=== PATIENT | female | born 1990 | race Caucasian/White ===

== ENCOUNTER 2020-12-26 15:51 | Inpatient (IN) | payer OTHER, SELFPAY ==
[2020-12-26] VITALS (9 sets, daily range): BP systolic 119–143; BP diastolic 72–88; PULSE 79–95; RESP 18; TEMP 37.2–37.3; BMI 39.1
--- NOTE | 2020-12-26 16:22 | LDADM ---
This patient, Elham Sims, was admitted to Labor/Delivery/Recovery 109 on 12/26/20 at 15:51. Plans for labor, pain management and were discussed with patient. Patient/family oriented to hospital policies and general routines including ID bracelet, bed and alarms, visiting hours, pain management, procedures, bathroom and other care routines, personal items, smoking policy, room service/diet and guest tray routines, security routines, and visiting hours. Patient/Family are encouraged to report perceived risks to care and to ask questions if they do not understand what they are told or what they should do. See OBIX for further documentation.
[2020-12-26] MEDS: DINOPROSTONE 10 MG VAG INSERT VAGINAL (16:31)
[2020-12-26] MEDS: AMPICILLIN 2 GM/NS 100 ML 2 GM/100 ML BAG IVPB (16:32)
[2020-12-26] MEDS: LACTATED RINGERS 1,000 ML 125 ML IV CONT (16:32)
[2020-12-26 16:58] LABS: Basophils Percent Auto 0.3 % (0.2-1.2); Eosinophils Percent Auto 0.5 % (0-4.4); Hematocrit 35.2 % (37.0-47.0); Hemoglobin 11.6 g/dL (12.0-15.0); Immature Granulocyte Absolute 0.02 K/mm3 (0.00-0.031); Immature Granulocyte Percent A 0.3 % (0-0.5); Lymphocytes Absolute Auto 1.24 K/mm3 (0.9-3.2); Lymphocytes Percent Auto 16.3 % (18.3-44.2); Mean Corpuscular Hemoglobin 28.4 pg (26-34); Mean Corpuscular Volume 86.1 fl (80-100); Mean Platelet Volume 11.4 fl (7.4-10.4); Monocytes Absolute Auto 0.6 K/mm3 (0.1-0.6); Monocytes Percent Auto 7.2 % (2.6-8.5); Neutrophils Absolute Auto 5.8 K/mm3 (1.3-6.7); Neutrophils Percent Auto 75.4 % (45.5-73.1); Platelet Count Result 173 k/mm3 (150-375); Red Blood Count 4.09 M/mm3 (4.2-5.4); Red Cell Distribution Width 13.2 % (11.5-14.5); White Blood Count 7.6 K/mm3 (4.5-10.0)
--- NOTE | 2020-12-26 17:08 | P.PNAN_ITS ---
Anes - Eval Pre Procedure Procedure: Labor epidural Date/Time: 12/26/20 17:08 Surgeon: Thom Preop Diagnosis: pain during labor Pre Op Diagnosis: Induction of Labor Patient Data Age: 30 Gender: F Height: 1.57 m Weight: 97 kg Last Vital Signs Pulse 90 12/26/20 17:01 BP 141/88 H 12/26/20 17:01 Allergies Allergy/AdvReac Type Severity Reaction Status Date / Time No Known Allergies Allergy Verified 12/03/20 14:41 Home Medications Medication Instructions Recorded Confirmed Type prenat.vits,pa,aiz-frvl-sfrtp 1 tablet PO DAILY 12/03/20 12/03/20 History [ #2] Laboratory Tests 12/26/20 12/26/20 16:26 16:26 WBC 7.6 K/mm3 K/mm3 (4.5-10.0) RBC 4.09 M/mm3 L M/mm3 (4.2-5.4) Hgb 11.6 g/dL L g/dL (12.0-15.0) Hct 35.2 % L % (37.0-47.0) MCV 86.1 fl fl (80-100) MCH 28.4 pg pg (26-34) MCHC 33.0 g/dl g/dl (32-36) RDW 13.2 % % (11.5-14.5) Plt Count 173 k/mm3 k/mm3 (150-375) MPV 11.4 fl H fl (7.4-10.4) Immature Gran % (Auto) 0.3 % % (0-0.5) Neut % (Auto) 75.4 % H % (45.5-73.1) Lymph % (Auto) 16.3 % L % (18.3-44.2) [place] % (Auto) 7.2 % % (2.6-8.5) Eos % (Auto) 0.5 % % (0-4.4) Baso % (Auto) 0.3 % % (0.2-1.2) Lymph # (Auto) 1.24 K/mm3 K/mm3 (0.9-3.2) [place] # (Auto) 0.6 K/mm3 K/mm3 (0.1-0.6) Eos # (Auto) 0.0 K/mm3 K/mm3 (0-0.3) Baso # (Auto) 0.0 K/mm3 K/mm3 (0.0-0.1) Abs Immat Gran (auto) 0.02 K/mm3 K/mm3 (0.00-0.031) Absolute Neuts (auto) 5.8 K/mm3 K/mm3 (1.3-6.7) Absolute Nucleated RBC 0.0 K/mm3 K/mm3 (0.0-0.012) Nucleated RBC % 0.0 % % (0.0-0.2) RPR Pending Patient hx anesthesia problems: none Family hx anesthesia problems: none [facility] Past Medical History Medical History (Updated 12/26/20 @ 17:09 by Maryuri Amin CRNA) Intrauterine Family History Family History (Updated 12/03/20 @ 14:43 by Nerissa Bolton RN) Mother Palpitations Grandparent Heart disease Father Diabetes mellitus Social History Social History Smoking status: Never smoker Substance use: never Spiritual care concerns: No Exam Day of Procedure 12/26/20 17:08
[2020-12-26] MEDS: AMPICILLIN 1 GM/NS 50 ML 1 GM/50 ML BAG IVPB (20:22)
[2020-12-27] VITALS (247 sets, daily range): BP systolic 88–166; BP diastolic 53–121; PULSE 70–128; RESP 17–22; TEMP 36.4–37.6; O2SAT 94–100
[2020-12-27] MEDS: AMPICILLIN 1 GM/NS 50 ML 1 GM/50 ML BAG IVPB ×5 (00:28→17:49)
[2020-12-27] MEDS: OXYTOCIN 30 UNITS/NS 500 ML 30 UNITS/500 ML BAG 6 UNITS IV CONT (05:07)
--- NOTE | 2020-12-27 07:58 | WPDOBADMIT ---
Obstetrics - Admit Note Admission Note: 30 y/o G1 @ 39w3d here for induction of labor. VSS Irregular contractions FHR category 1 Cervix 2/80/-2 Arom moderate amount of clear odorless fluid Anticipate record reviewed. No pertinent additions to the history and/or any subsequent changes in the physical findings that are not consistent with the expected course of the were found. Additions to the history and/or subsequent changes in the physical findings follow. None.
[2020-12-27] MEDS: LACTATED RINGERS 1,000 ML 999 ML IV CONT (08:52)
[2020-12-27 11:00] LABS: Rapid Plasma Reagin Non-Reactive (NonReactive)
[2020-12-27] MEDS: LACTATED RINGERS 1,000 ML 125 ML IV CONT (14:02)
--- NOTE | 2020-12-27 18:50 | PM.IMHP ---
H&P: HPI History of Present Illness Date/Time: 12/27/20 18:50 Chief Complaint: Induction of labor Narrative: Elham Sims is a 30 year old female @ 39w 3d here for induction of labor. Review of Systems Review of Systems: All systems reviewed & are unremarkable except as noted in HPI and below PMFSH Past Medical History Medical History Intrauterine Family History Family History Mother Palpitations Grandparent Heart disease Father Diabetes mellitus Social History Social History Smoking status: Never smoker Substance use: never Spiritual care concerns: No Meds Home Medications and Allergies Home Medications Medication Instructions Recorded Confirmed Type prenat.vits,pa,jck-aqgk-bjtxf 1 tablet PO DAILY 12/03/20 12/03/20 History [ #2] Allergies Allergy/AdvReac Type Severity Reaction Status Date / Time No Known Allergies Allergy Verified 12/03/20 14:41 Vital Signs Vital Signs - 24 hr 12/26/20 20:28 12/26/20 20:31 12/27/20 00:27 Temperature 99.1 F 97.6 F Pulse Rate 82 83 Respiratory Rate 18 18 Blood Pressure 143/81 H 143/87 H Pulse Oximetry 12/27/20 00:32 12/27/20 01:01 12/27/20 01:31 Temperature Pulse Rate 79 76 75 Respiratory Rate Blood Pressure 143/83 H 142/90 H 135/90 Pulse Oximetry 12/27/20 02:01 12/27/20 02:31 12/27/20 02:56 Temperature Pulse Rate 70 74 72 Respiratory Rate Blood Pressure 135/91 H 148/100 H 132/88 Pulse Oximetry 12/27/20 03:00 12/27/20 03:31 12/27/20 04:01 Temperature Pulse Rate 70 75 78 Respiratory Rate Blood Pressure 138/88 131/83 142/85 H Pulse Oximetry 12/27/20 04:33 12/27/20 04:36 12/27/20 05:06 Temperature 98.9 F Pulse Rate 76 82 Respiratory Rate 18 Blood Pressure 131/79 128/80 Pulse Oximetry 12/27/20 05:15 12/27/20 05:31 12/27/20 05:46 Temperature Pulse Rate 86 79 79 Respiratory Rate Blood Pressure 143/86 H 138/87 132/82 Pulse Oximetry 12/27/20 06:01 12/27/20 06:16 12/27/20 06:30 Temperature Pulse Rate 74 79 76 Respiratory Rate Blood Pressure 123/74 132/84 139/83 Pulse Oximetry 12/27/20 07:01 12/27/20 07:15 12/27/20 07:30 Temperature Pulse Rate 78 79 80 Respiratory Rate Blood Pressure 138/89 140/92 H 140/89 Pulse Oximetry 12/27/20 07:49 12/27/20 08:00 12/27/20 08:16 Temperature 99.1 F Pulse Rate 82 89 Respiratory Rate Blood Pressure 153/88 H 146/95 H Pulse Oximetry 12/27/20 08:31 12/27/20 08:39 12/27/20 08:41 Temperature Pulse Rate 88 98 103 H Respiratory Rate Blood Pressure 140/89 150/100 H 155/83 H Pulse Oximetry 99 12/27/20 08:43 12/27/20 08:44 12/27/20 08:46 Temperature Pulse Rate 84 81 Respiratory Rate Blood Pressure 166/76 H 138/75 Pulse Oximetry 97 12/27/20 08:48 12/27/20 08:49 12/27/20 08:51 Temperature Pulse Rate 90 90 Respiratory Rate Blood Pressure 152/83 H 142/85 H Pulse Oximetry 99 12/27/20 08:53 12/27/20 08:54 12/27/20 08:56 Temperature Pulse Rate 87 90 Respiratory Rate Blood Pressure 141/82 H 144/82 H Pulse Oximetry 98 12/27/20 08:58 12/27/20 08:59 12/27/20 09:01 Temperature Pulse Rate 89 88 Respiratory Rate Blood Pressure 139/82 129/79 Pulse Oximetry 99 12/27/20 09:03 12/27/20 09:04 12/27/20 09:06 Temperature Pulse Rate 87 86 Respiratory Rate Blood Pressure 139/80 139/82 Pulse Oximetry 97 12/27/20 09:08 12/27/20 09:09 12/27/20 09:11 Temperature Pulse Rate 85 83 Respiratory Rate Blood Pressure 145/81 H 141/81 H Pulse Oximetry 95 12/27/20 09:13 12/27/20 09:14 12/27/20 09:16 Temperature Pulse Rate 86 83 Respiratory Rate Blood Pressure 140/85 135/80 Pulse Oximetry 97 0
--- NOTE | 2020-12-27 18:55 | PM.OBPNLAB ---
Pain Control Date/time seen: 12/27/20 18:55 VSS and afebrile Contractions regular FHR category 1 Complete and pushing x 2.5 hours Suboptimal position with caput Arrest of descent Spoke with Dr Tomas and c/s has been called.
--- NOTE | 2020-12-27 19:03 | WPDHPUPDATE1 ---
History and Physical Update Update Date/Time: 12/27/20 19:03 History and Physical has been reviewed, including an updated exam of the patient. There are NO changes in the patient's condition. Risks, benefits, and alternatives have been discussed and questions answered. Patient agrees to proceed with procedure.
[2020-12-27] MEDS: KETOROLAC 30 MG/ML VIAL (*BKC) IV PUSH (19:45)
--- NOTE | 2020-12-27 19:56 | P.OP_ITS ---
Procedure Note - Detailed Date of procedure: 12/27/20 Pre-op diagnosis: Induction of Labor Failure to Descend Post-op diagnosis: same (Malposition of the head.) Procedure performed: low-transverse delivery Description of procedure: The patient was taken the operating room. She was prepped and draped in the dorsal supine position with leftward tilt after induction of spinal anesthetic. When anesthesia was found to be adequate a low- transverse skin incision was made and carried down to the level the fascia with the knife. The fascial incision was made at the midline with a scalpel. The fascial incision was extended laterally with Cortés scissors. The fascia was tented upward superior and inferior with Smita clamps. The rectus muscles were dissected off bluntly. The rectus muscles at the midline. The preperitoneal fat was dissected bluntly at the superior aspect of the separate the rectus muscles. The peritoneal cavity was entered bluntly in the same area. The peritoneal incision was extended superior and inferior with good visualization of bladder. Bladder blade was inserted. A low-transverse incision was made on the uterus with the scalpel. It was carried down the level of the amniotic cavity with a knife. The amniotic cavity bluntly. The uterine incision was made laterally with blunt traction. The infant was delivered. The cord was clamped and cut. The infant was handed off to waiting pediatric staff. Cord bloods were obtained. The placenta was removed manually. The uterus was exteriorized. Uterus cleared of all clots and debris. The uterine incision was extended behind the bladder by delivery of the very low head. The apical portion of the extended incision was identified and included in the closure. Uterus closed in 0 Vicryl in a running locked fashion. An imbricating layer of 0 Vicryl was also placed on the to bolster the closure. The uterus was returned to the abdomen. The gutters were cleared of all clots and debris. The fascia was closed 0 Vicryl in a running fashion. Subcutaneous tissue was irrigated and bleeding areas were cauterized. The skin was closed with subcuticular absorbable avinash. The incision was covered with derma alcantar. The patient tolerated the procedure well. She was taken recovery room stable condition. Sponge, lap, needle counts were correct x2. Anesthesia: spinal Surgeon: Jaja Tomas MD Drains: No Packing: No Pathology: none sent Complications: No immediate complications Condition: stable Disposition: floor Findings: Normal maternal anatomy. Average size infant with normal Apgars. malposition of the head - LOP
[2020-12-27] MEDS: ceFAZolin 2 GM/D5W 50 ML 2 GM/50 ML BAG IVPB (20:05)
[2020-12-27] MEDS: OXYTOCIN 30 UNITS/NS 500 ML 30 UNITS/500 ML BAG 125 UNITS IV CONT (21:30)
--- NOTE | 2020-12-27 22:22 | OBPPTRN ---
Patient transferred to post room # 292 via stretcher. Support person and present. Oriented to unit, room, information board, rooming in, admission packet and security measures. Patient verbalizes understanding.
[2020-12-28 00:15] VITALS: BP 118/76; PULSE 81; RESP 18; TEMP 37; O2SAT 97
[2020-12-28] MEDS: DEXTROSE 5%/0.45% SOD CHL 1,000 ML 125 ML IV CONT (02:29)
[2020-12-28 05:00] VITALS: BP 116/67; PULSE 78; RESP 18; TEMP 36.8; O2SAT 97
[2020-12-28 05:37] LABS: Basophils Percent Auto 0.3 % (0.2-1.2); Eosinophils Percent Auto 0.1 % (0-4.4); Hematocrit 30.2 % (37.0-47.0); Hemoglobin 9.8 g/dL (12.0-15.0); Immature Granulocyte Absolute 0.05 K/mm3 (0.00-0.031); Immature Granulocyte Percent A 0.5 % (0-0.5); Lymphocytes Absolute Auto 1.16 K/mm3 (0.9-3.2); Lymphocytes Percent Auto 10.8 % (18.3-44.2); Mean Corpuscular HGB Conc 32.5 g/dl (32-36); Mean Corpuscular Hemoglobin 28.4 pg (26-34); Mean Corpuscular Volume 87.5 fl (80-100); Mean Platelet Volume 11.3 fl (7.4-10.4); Monocytes Absolute Auto 0.8 K/mm3 (0.1-0.6); Neutrophils Absolute Auto 8.7 K/mm3 (1.3-6.7); Neutrophils Percent Auto 81.3 % (45.5-73.1); Platelet Count Result 151 k/mm3 (150-375); Red Blood Count 3.45 M/mm3 (4.2-5.4); Red Cell Distribution Width 13.4 % (11.5-14.5); White Blood Count 10.7 K/mm3 (4.5-10.0)
[2020-12-28 06:56] LABS: Basophils Percent Auto 0.2 % (0.2-1.2); Eosinophils Percent Auto 0.2 % (0-4.4); Hematocrit 29.3 % (37.0-47.0); Hemoglobin 9.5 g/dL (12.0-15.0); Immature Granulocyte Absolute 0.03 K/mm3 (0.00-0.031); Immature Granulocyte Percent A 0.3 % (0-0.5); Lymphocytes Percent Auto 10.8 % (18.3-44.2); Mean Corpuscular HGB Conc 32.4 g/dl (32-36); Mean Corpuscular Hemoglobin 28.3 pg (26-34); Mean Corpuscular Volume 87.2 fl (80-100); Monocytes Absolute Auto 0.8 K/mm3 (0.1-0.6); Monocytes Percent Auto 7.6 % (2.6-8.5); Neutrophils Absolute Auto 8.3 K/mm3 (1.3-6.7); Neutrophils Percent Auto 80.9 % (45.5-73.1); Platelet Count Result 140 k/mm3 (150-375); Red Blood Count 3.36 M/mm3 (4.2-5.4); Red Cell Distribution Width 13.5 % (11.5-14.5); White Blood Count 10.2 K/mm3 (4.5-10.0)
[2020-12-28 08:00] VITALS: BP 126/74; PULSE 92; RESP 18; TEMP 37.3; O2SAT 98
--- NOTE | 2020-12-28 08:00 | PC.NURSE ---
Nipple shield provided to mother due to ineffective feeding and flat nipples. Instructions given on application and cleaning of shield. Discussed nipple shield precautions and possible complications. Patient able to return demonstration on proper application of shield. Discussed the need to initiate pumping if continues to nurse with the shield. Patient verbalizes understanding.
[2020-12-28] MEDS: KETOROLAC 30 MG/ML VIAL (*BKC) IV PUSH (09:11)
[2020-12-28] MEDS: HYDROcodone/acetaminophen (*CRX) 5-325 MG TABLET 1 TAB PO ×3 (09:11→17:41)
[2020-12-28] MEDS: SIMETHICONE 80 MG TAB.CHEW PO ×2 (09:12→17:42)
[2020-12-28] MEDS: DOCUSATE SODIUM 100 MG CAPSULE PO ×2 (09:12→17:43)
[2020-12-28] MEDS: POLYSACCHARIDE IRON COMPLEX 150 MG CAPSULE PO ×2 (09:12→17:43)
[2020-12-28] MEDS: MULTIVIT/MIN/PREN/FOL AC/IRON TABLET 1 TAB PO (09:12)
--- NOTE | 2020-12-28 09:29 | WPDANLDPN2 ---
Anes-Prog Note L&D Date/Time: 12/28/20 09:29 Comfortable throughout: labor and section Neuraxial method: epidural Epidural/Spinal procedure site: clean & non-tender Neuro status: Neuro function grossly intact. Cardiovascular status: normal Respiratory status: normal Airway patency: baseline Mental status: baseline Post-Op hydration status: normal Vital Signs: Last Vital Signs Temp 36.8 C 12/28/20 05:00 Pulse 78 12/28/20 05:00 Resp 18 12/28/20 05:00 BP 116/67 12/28/20 05:00 Pulse Ox 97 12/28/20 05:00 Pain score (VAS): 3 I/O: Intake & Output 12/27/20 12/28/20 12/28/20 23:59 07:59 15:59 Intake Total 400 620 Output Total 175 300 Balance 225 320 Post-procedural complaints: none Patient feedback: Patient satisfied with anesthetic care.
--- NOTE | 2020-12-28 09:30 | WPDANLDNPN2 ---
Anes-Prog Note L&D-Neuraxial Date/Time: 12/28/20 09:30 Neuraxial medications: epidural PF morphine Opiod-related complaints: none Patient feedback: Patient satisfied with post-operative pain management.
[2020-12-28] MEDS: diphenhydrAMINE HCl INJ 50 MG/ML VIAL 25 MG IV PUSH (09:36)
--- NOTE | 2020-12-28 09:41 | P.PNOB_ITS ---
OB - PN: Subj Subjective Date/time seen: 12/28/20 09:41 Patient comments: no complaints, pain well controlled, tolerating diet and flatus present OB - PN: Obj Data Labs CBC & Chem 7: 12/28/20 06:44 Labs: Laboratory Results - last 24 hr 12/26/20 12/28/20 12/28/20 16:26 05:07 06:44 WBC 10.7 H 10.2 H RBC 3.45 L 3.36 L Hgb 9.8 L 9.5 L Hct 30.2 L 29.3 L MCV 87.5 87.2 MCH 28.4 28.3 MCHC 32.5 32.4 RDW 13.4 13.5 Plt Count 151 140 L MPV 11.3 H 11.0 H Immature Gran % (Auto) 0.5 0.3 Neut % (Auto) 81.3 H 80.9 H Lymph % (Auto) 10.8 L 10.8 L [place] % (Auto) 7.0 7.6 Eos % (Auto) 0.1 0.2 Baso % (Auto) 0.3 0.2 Lymph # (Auto) 1.16 1.10 [place] # (Auto) 0.8 H 0.8 H Eos # (Auto) 0.0 0.0 Baso # (Auto) 0.0 0.0 Abs Immat Gran (auto) 0.05 H 0.03 Absolute Neuts (auto) 8.7 H 8.3 H Absolute Nucleated RBC 0.0 0.0 Nucleated RBC % 0.0 0.0 RPR Non-reactive OB - PN A/P Plan day: 1 Comments: Post Op LTCS - no problems, routine recovery Time Spent With Patient Time: Total time spent is greater than 50% in coordination of care (as documented) at patient's floor/unit and/or counseling patient: Exam Const: General: cooperative, healthy appearing, comfortable and no acute distress Resp: Auscultation: no crackles, no rales, no rhonchi and no wheezes Cardio: Rhythm: regular rhythm Heart sounds: no click and no murmurs GI: Inspection: non-distended Auscultation: normal bowel sounds Extrem: General: normal to inspection, no pedal edema and no calf tenderness
[2020-12-28 11:20] VITALS: BP 120/67; PULSE 84; RESP 18; TEMP 37.2; O2SAT 98
[2020-12-28 16:00] VITALS: BP 114/60; PULSE 80; RESP 18; TEMP 36.8; O2SAT 98
[2020-12-28] MEDS: IBUPROFEN 600 MG TABLET PO (17:42)
[2020-12-28 20:00] VITALS: BP 149/83; PULSE 91; RESP 16; TEMP 36.9
[2020-12-29] MEDS: HYDROcodone/acetaminophen (*CRX) 5-325 MG TABLET 1 TAB PO ×3 (01:04→16:07)
[2020-12-29] MEDS: IBUPROFEN 600 MG TABLET PO ×3 (01:04→16:07)
[2020-12-29] MEDS: SIMETHICONE 80 MG TAB.CHEW PO ×3 (01:05→16:08)
[2020-12-29 07:25] VITALS: BP 126/84; PULSE 75; RESP 18; TEMP 36.4; O2SAT 98
[2020-12-29 08:00] VITALS: BP 140/70; PULSE 88; RESP 18; TEMP 36.9; O2SAT 98
--- NOTE | 2020-12-29 08:28 | PM.OBPNVD ---
OB - PN: Subj Subjective Date/time seen: 12/29/20 08:28 Patient comments: no complaints, pain well controlled, incisional pain, tolerating diet and flatus present OB - PN: Obj Data Labs CBC & Chem 7: 12/28/20 06:44 OB - PN A/P Plan day: 2 Plan: routine care Comments: POD#2 LTCS - no problems, to d/c Time Spent With Patient Time: Total time spent is greater than 50% in coordination of care (as documented) at patient's floor/unit and/or counseling patient: Exam Const: General: comfortable, no acute distress and alert Resp: Effort & Inspection: normal respiratory effort Auscultation: no crackles, no rales and no rhonchi Cardio: Rate: regular rate Heart sounds: no click, no murmurs and no rubs GI: Inspection: non-distended GI Palp: No Tenderness to palpation present (GI) Auscultation: normal bowel sounds Other: Incision - CDI Extrem: General: normal to inspection, no pedal edema and no calf tenderness
--- NOTE | 2020-12-29 08:29 | PM.OBDSVD ---
DS: Admitting Diagnosis Admitting Diagnosis Admitting Diagnosis: term OB - DS: Summary OB Procedures : None OB Procedures Intrapartum: OB Procedures: : None Peripartum Data Infant Delivery Method: Section Procedures: Procedures Operation Date: 12/27/20 19:15 Actual Procedures Side Surgeon p Section Not Applicable Jaja Tomas MD complications: none Status at Discharge Functional status at discharge: independent ambulation Time Spent with Patient Time attestation: Total time spent providing and/or coordinating discharge services: DS: Data Data Completed and Pending Pending studies at discharge: Pending at discharge 12/27/20 19:29 Surgical [PTH] Routine Discharge Plan Discharge Attending physician on discharge: Jaja Tomas Discharging Clinician: Jaja Tomas Patient Disposition: Home, Self-Care Activity: pelvic rest Diet: regular Patient Instructions: Antibiotic Form Stand Alone Forms: General Discharge Information Follow-up/Referrals: Jaja Tomas MD [Physician] - Discharge Medications: New hydrocodone-acetaminophen 5-325 mg tablet 1 - 2 tablet PO Q4H PRN (Reason: pain) Qty: 25 RF: 0 Continued #2 Tablet 1 tablet PO DAILY RF: 0 Date of admission: 12/26/20 15:51 Primary Care Provider: PHYSICIAN,HEALTHCARE NETWORK CONSULTANT Admitting Provider: Jaja Tomas Attending physician on admission: Jaja Tomas Condition: Stable
[2020-12-29] MEDS: MULTIVIT/MIN/PREN/FOL AC/IRON TABLET 1 TAB PO (09:34)
[2020-12-29] MEDS: POLYSACCHARIDE IRON COMPLEX 150 MG CAPSULE PO ×2 (09:35→16:08)
[2020-12-29] MEDS: DOCUSATE SODIUM 100 MG CAPSULE PO ×2 (09:35→16:06)
[2020-12-29] MEDS: TETANUS,DIPHTHERIA,AC PERTUSSIS ADULT (0.5 ML) BOOSTRIX IM (09:35)
--- NOTE | 2020-12-29 16:30 | PC.NURSE ---
Patient viewed the discharge video Mother & Baby Care, The First Two Weeks . Patient was given the opportunity and encouraged to ask questions. Patient verbalized understanding of information shared and has been given the mother/baby guide for home reference.
--- NOTE | 2020-12-29 17:08 | PC.NURSE ---
Observed multiple breast feedings while assisting mother and discussing positions for feedings, length of feeding, effective feedings. Detailed instructions given to pt. and in regards to how often and how long feedings should be. Feeding plan given and discussed in length about feeding and when to supplement. Pt and verbalized understanding.
[2020-12-30 09:02] VITALS: BP 146/85; PULSE 93; RESP 20; TEMP 36.7; O2SAT 100
== END 2020-12-29 18:45 | disposition home or self-care (01) | DRG 788 ==
LOC: ANHLDR 15:57 → ANHOB2 12-27 22:50
PROVIDERS: Advanced Practice Midwife; Admitting Provider Obstetrics & Gynecology; Visit Provider Obstetrics & Gynecology
PROC: 10D00Z1 Extraction of Products of Conception, Low, Open Approach (ICD-10-PCS; CPT 59514; principal; 2020-12-27 19:15)
DX: O62.1 Secondary uterine inertia (principal); O43.113 Circumvallate placenta, third trimester; Z37.0 Single live birth; O32.3XX0 Maternal care for face, brow and chin presentation, not applicable or unspecified; O77.0 Labor and delivery complicated by meconium in amniotic fluid; Z3A.39 39 weeks gestation of pregnancy
CPT/HCPCS: 36415; 85025; 86592; 86850; 86900; 86901; 88307; 90715; A9270; J0131; J0290; J0690; J1200; J1885; J2175; J2274; J2405; J2590; J2795; J3010; J7120